=== PATIENT | female | born 1950 | race Caucasian/White ===

== ENCOUNTER → 2017-09-07 | Outpatient (CLI) | payer MEDICARE, OTHER ==
[~2017-09-07] MED LIST: ALBU17AE23 IH; AMLO10TA82 PO; ENAL20TA PO; EST.625T PO; HCT25T PO; PROP1TAB2 PO; TRAM50TA2 PO
[2017-09-07 15:26] LABS: BASOPHILS % (AUTO) 0 % (0-10); EOSINOPHILS # (AUTO) 0.3 10^3/uL (0.0-0.3); EOSINOPHILS % (AUTO) 3 % (0-10); HEMATOCRIT 42 % (35-52); HEMOGLOBIN 13.9 G/DL (11.5-16.0); LYMPHOCYTES % (AUTO) 30 % (12-44); MEAN CORPUSCULAR HEMOGLOBIN 31 PG (25-34); MEAN CORPUSCULAR HGB CONC 33 G/DL (32-36); MEAN CORPUSCULAR VOLUME 93 FL (80-99); MEAN PLATELET VOLUME 9.2 FL (7.4-10.4); MONOCYTES % (AUTO) 10 % (0-12); NEUTROPHILS # (AUTO) 5.7 X 10^3 (1.8-7.8); NEUTROPHILS % (AUTO) 57 % (42-75); PLATELET COUNT 276 10^3/uL (130-400); RED CELL DISTRIBUTION WIDTH 12.5 % (10.0-14.5)
[2017-09-07 15:43] LABS: ERYTHROCYTE SEDIMENTATION RATE 39 MM/HR (0-30)
[2017-09-07 15:45] LABS: ALANINE AMINOTRANSFERASE 40 U/L (0-55); ALBUMIN 4.3 GM/DL (3.2-4.5); ALKALINE PHOSPHATASE 73 U/L (40-136); BILIRUBIN,TOTAL 0.3 MG/DL (0.1-1.0); BUN/CREATININE RATIO 9; CALCIUM 10.1 MG/DL (8.5-10.1); CARBON DIOXIDE 27 MMOL/L (21-32); CHLORIDE 101 MMOL/L (98-107); GFR ESTIMATED > 60; GLUCOSE 121 MG/DL (70-105); POTASSIUM 4.2 MMOL/L (3.6-5.0); SODIUM 140 MMOL/L (135-145); TOTAL PROTEIN 8.3 GM/DL (6.4-8.2)
== END ==
LOC: LAB 15:09
PROVIDERS: ATTEND Nurse Practitioner Family
DX: R10.84 Generalized abdominal pain (principal); R35.0 Frequency of micturition; R05 Cough
CPT/HCPCS: 36415; 80053; 85025; 85652

== ENCOUNTER 2019-02-28 10:30 | Outpatient (CLI) | payer MEDICARE, OTHER ==
[~2019-02-28] VITALS: Ht 172 cm; Wt 106.0 kg
[~2019-02-28 10:30] MED LIST changes: +ALPR1TAB7 PO; +AMLO10TA7 PO; +BUDE10.2 IH; +DIPH25TA31 PO; +FURO-124 PO; +HYDR-3820 PO; +HYOS-19 SL; +NF-ADDXR30 PO; +NF-ADXR10C PO; +RT-ALBUINH INH; +TIOT4MIS5 IH
== END 2019-02-28 11:03 | disposition home or self-care (01) ==
LOC: PREOP 10:30
PROVIDERS: ATTEND Surgery
DX: Z01.818 Encounter for other preprocedural examination (principal)

== ENCOUNTER 2019-03-05 10:12 | Day surgery (SDC) | payer MEDICARE, OTHER ==
[~2019-03-05] VITALS: Ht 172.7 cm; Wt 106.0 kg
[2019-03-05] MEDS ORDERED: LACTATED RINGERS 1,000 ML IV ONE (10:39)
[2019-03-05] MEDS ORDERED: LACTATED RINGERS 1,000 ML IV STA (10:40)
[2019-03-05 10:45] VITALS: BP 138/81
--- NOTE | 2019-03-05 10:57 | Progress Note-Pre Operative ---
Pre-Operative Progress Note H&P Reviewed The H&P was reviewed, patient examined and no changes noted. Time Seen by Provider: 10:55 Date H&P Reviewed: Mar 05, 2019 Time H&P Reviewed: 10:53 Pre-Operative Diagnosis: screening colon DELVIN HUNT DO Mar 05, 2019 10:57
[2019-03-05] MEDS ORDERED: PROPOFOL INJECTION 50 ML IV ONE (12:40)
[2019-03-05 13:05] VITALS: BP 121/60
--- NOTE | 2019-03-05 13:09 | Progress Note-Post Operative ---
Post-Operative Progess Note Surgeon (s)/Automatic Quilling Machine Operator (s) Surgeon DELVIN HUNT DO Automatic Quilling Machine Operator: none Pre-Operative Diagnosis screening colon Post-Operative Diagnosis diverticula internal hemorrhoids Procedure & Operative Findings Date of Procedure 03/05/19 Procedure Performed/Findings colonoscopy Anesthesia Type IV sedation by GPS FIELD DATA COLLECTOR Estimated Blood Loss Estimated blood loss (mL): none Specimens/Packing Specimens Removed none DELVIN HUNT DO Mar 05, 2019 13:09
[2019-03-05 13:10] VITALS: BP 135/61
--- NOTE | 2019-03-05 13:12 | Endoscopy Discharge Instruct ---
Endo Procedure/Findings Findings 1.: Diverticulosis 2.: Internal Hemorrhoids Discharge Instructions - Activity: You might feel a little sleepy until tomorrow. This is due to the medicine you received to relax you. Until tomorrow, you should: NOT drive a car, operate machinery or power tools. NOT drink any alcoholic beverages. NOT make any important decisions or sign importortant papers. Do not return to work until tomorrow, unless otherwise instructed. Resume previous activities tomorrow. Diet: Start by taking liquids. If you tolerate liquids, advance to solid food. make an appointment for one week 1.: Colonscopy in 10 years Notify Physician - If you experience excessive bleeding, unusual abdominal pain, fever, or chest pain, contact your doctor immediately. DELVIN HUNT DO Mar 05, 2019 13:11
[2019-03-05 13:15] VITALS: BP 138/61
[2019-03-05 13:30] VITALS: BP 132/68
[2019-03-05 13:36] VITALS: BP 132/68
--- NOTE | 2019-03-06 22:50 | OPERATIVE REPORT ---
DATE OF SERVICE: 03/05/2019 PREOPERATIVE DIAGNOSIS: Screening colonoscopy. POSTOPERATIVE DIAGNOSES: 1. Diverticula. 2. Internal hemorrhoids. PROCEDURE: Colonoscopy. SURGEON: Fausto Bansal DO. OUTPLACEMENT CONSULTANT: None. ANESTHESIA: IV sedation by GIS ANALYST DEVELOPER. SPECIMENS: None. BLOOD LOSS: None. FLUIDS: Per anesthesia. POSTOPERATIVE CONDITION: Stable. INDICATION FOR PROCEDURE: The patient is a 68-year-old female who has never had a colonoscopy and needs one for screening. FINDINGS: The patient had some small diverticula and some internal hemorrhoids. No other obvious pathology seen. PROCEDURE NOTE: After informed consent was obtained, the patient was brought to the endoscopy suite and placed in the bed in the left lateral decubitus position. She was administered IV sedation by the GIS ANALYST DEVELOPER who then monitored her vitals the entire time, heart rate, blood pressure and pulse ox. Inserted the scope, pushed all the way to [address] in, noted some diverticula, took a picture of this and then once into the cecum, took a picture of appendiceal orifice, noted the ileocecal valve and then slowly withdrew the scope insufflating the circumferential wall looking at the cecum, up the ascending colon to the hepatic flexure, then down the transverse colon, the splenic flexure, into the descending colon down into the sigmoid and finally into the rectum, retroflexed the rectal vault, saw some small internal hemorrhoids maybe grade I and also looked like a little skin tag, picture taken. Scope was then removed. The patient tolerated the procedure and she was recovered in endoscopy suite. Job ID: [id number] DocumentID: [id number] Dictated Date: 03/06/2019 17:06:35 Environmental Safety Specialist Date: 03/06/2019 22:49:12 Dictated By: FAUSTO BANSAL DO
== END 2019-03-05 13:37 | disposition home or self-care (01) ==
LOC: ENDO 10:12
PROVIDERS: ATTEND Surgery
DX: Z12.11 Encounter for screening for malignant neoplasm of colon (principal); K57.30 Diverticulosis of large intestine without perforation or abscess without bleeding; K64.8 Other hemorrhoids; I10 Essential (primary) hypertension; J45.909 Unspecified asthma, uncomplicated; E66.9 Obesity, unspecified; F90.0 Attention-deficit hyperactivity disorder, predominantly inattentive type; Z68.35 Body mass index [BMI] 35.0-35.9, adult; Z90.710 Acquired absence of both cervix and uterus; Z90.49 Acquired absence of other specified parts of digestive tract; Z90.89 Acquired absence of other organs; Z79.899 Other long term (current) drug therapy; Z82.49 Family history of ischemic heart disease and other diseases of the circulatory system; Z83.3 Family history of diabetes mellitus; Z82.61 Family history of arthritis

== ENCOUNTER → 2019-03-16 | Outpatient (CLI) | payer MEDICARE, OTHER ==
[~2019-03-16] MED LIST changes: +BARIUM SUSPENSION 2.1% (VANILLA SILQ) 450 ML PO ONE; +CATHETER FLUSH 10 ML SYR IV PRN; +HOLD METFORMIN - RECEIVED CONTRAST 20 ML VIAL IV SCH; +IOHEXOL 350 MG/ML 100 ML (OMNIPAQUE 350) VIAL IV ONE; +NS 100 ML (IVPB) BAG IV ONE
[2019-03-16 14:09] LABS: BUN/CREATININE RATIO 9; GFR ESTIMATED > 60
--- NOTE | 2019-03-16 15:31 | Diagnostic Imaging Report ---
PROCEDURE: CT abdomen and pelvis with contrast. TECHNIQUE: Multiple contiguous axial images were obtained through the abdomen and pelvis after administration of intravenous contrast. Auto Exposure Controls were utilized during the CT exam to meet ALARA standards for radiation dose reduction. INDICATION: Abdominal pain Lung bases are clear. Liver appears normal. Gallbladder surgically absent. Portal vein is patent. Common duct is nondilated. Pancreas is normal. Spleen is not enlarged. Adrenals normal. Kidneys appear normal. There is minimal calcific atherosclerosis of the aorta but no aneurysm. Small bowel is not dilated. The appendix is not seen. There is minimal diverticulosis of the sigmoid colon. There is no evidence of diverticulitis. There is no intraperitoneal free air or free fluid. Uterus is surgically absent. IMPRESSION: No acute abnormality seen in the abdomen or pelvis. There is no evidence for diverticulitis. Dictated by: Dictated on workstation # [id number]
== END ==
LOC: RAD 13:43
PROVIDERS: ATTEND Surgery
DX: R10.9 Unspecified abdominal pain (principal)
CPT/HCPCS: 36415; 74177; 82565; 84520

== ENCOUNTER 2019-07-23 12:49 | Observation (INO) | payer MEDICARE, OTHER ==
[~2019-07-23] VITALS: Ht 172.7 cm; Wt 107.3 kg
[~2019-07-23 12:49] MED LIST changes: -BARIUM SUSPENSION 2.1% (VANILLA SILQ) 450 ML PO ONE; -CATHETER FLUSH 10 ML SYR IV PRN; -HOLD METFORMIN - RECEIVED CONTRAST 20 ML VIAL IV SCH; -IOHEXOL 350 MG/ML 100 ML (OMNIPAQUE 350) VIAL IV ONE; -NS 100 ML (IVPB) BAG IV ONE
[2019-07-23] MEDS ORDERED: methylPREDNISolone 125 MG (Solu-MEDROL) VIAL IV STA (12:56)
[2019-07-23] MEDS ORDERED: DEXAMETHASONE 4 MG/ML SDV (DECADRON) IH ONE (13:00)
[2019-07-23] MEDS ORDERED: RT-ALBUTEROL/IPRATROPIUM 3 ML (DUONEB) VIAL INH ONE (13:00)
--- NOTE | 2019-07-23 13:05 | ED General ---
General Stated Complaint: SOA Source of Information: Patient (SOMEWHAT DIFFICULT HISTORIAN) History of Present Illness Date Seen by Provider: Jul 23, 2019 Time Seen by Provider: 12:51 Initial Comments PT ARRIVES VIA POV, NEEDING WHEELCHAIR ON ARRIVAL PT WITH MULTIPLE COMPLAINTS STATES SHE HAS BEEN HAVING PROBLEMS FOR THE LAST 3 WEEKS MAIN COMPLAINT IS SHORTNESS OF BREATH--ONGOING FOR 3 WEEKS STATES "MY KIDNEYS DON'T WORK" STATES SHE "HAD THE FLU" 3 WEEKS AGO--DID NOT SEEK CARE--STATES IT WAS THE WEEK OF Jun-- HAD IT TOO. PT CAN ONLY STATE THAT HER SYMPTOMS WERE SUBJECTIVE FEVER, AND SHE SLEPT FOR 2-3 DAYS. STATES SHE HAD SUBJECTIVE FEVER 3 WEEKS AGO, BUT NOT SINCE. NO SIGNIFICANT COUGH STATES SHE HAS BEEN "LIGHTHEADED AND DIZZY" HAS CHRONIC SWELLING TO LEGS/ FEET, AND IS NO DIFFERENT TODAY NO CHEST PAIN PT STATES SHE HAS ASTHMA AND HAS 3 DIFFERENT INHALERS, HAS ONLY USED HER VENTOLIN INHALER TODAY--A COUPLE OF HOURS AGO HAS NOT USED HER OTHER INHALERS HAS NOT TAKEN ANYTHING ELSE FOR SYMPTOMS SYMPTOMS NO DIFFERENT TODAY HAS NOT SOUGHT CARE UNTIL TODAY STATES SHE USED TO SEE DR. TOLEDO, UNTIL HE RETIRED, AND HAS A NEW PT APPOINTMENT WITH [facility] IN THE MORNING PCP: NEW PT APPOINTMENT AT [facility] IN THE MORNING, SINCE DR. TOLEDO RETIRED LAST APRIL. Allergies and Home Medications Allergies Coded Allergies: Penicillins (Verified Allergy, Unknown, 07/23/19) Home Medications Albuterol Sulfate 1 Puff Puff, 2 PUFF INH Q4H PRN for SHORTNESS OF BREATH, (Reported) 1 PUFF = 90 MCG Alprazolam 1 Mg Tablet, 1 MG PO TID, (Reported) Amlodipine Besylate 10 Mg Tablet, 10 MG PO DAILY, (Reported) Budesonide/Formoterol Fumarate 10.2 Gm Hfa.aer.ad, 2 PUFF IH BID, (Reported) Dextroamphetamine/Amphetamine 30 Mg Cap.er.24h, 30 MG PO DAILY, (Reported) Dextroamphetamine/Amphetamine 10 Mg Cap.er.24h, 10 MG PO DAILY, (Reported) Diphenhydramine HCl 25 Mg Tablet, 25 MG PO PRN, (Reported) Enalapril Maleate 20 Mg Tablet, 20 MG PO DAILY, (Reported) Furosemide 40 Mg Tablet, 40 MG PO DAILY, (Reported) Hydrocodone/Acetaminophen 1 Each Tablet, 1 TAB PO Q6H PRN for PAIN-MODERATE, (Reported) Hyoscyamine Sulfate 0.125 Mg Tab.subl, 0.125 MG SL NEEDED, (Reported) Tiotropium [place] 4 Gm Mist.inhal, 2 PUFF IH DAILY, (Reported) Patient Home Medication List Home Medication List Reviewed: Yes Review of Systems Review of Systems Constitutional: see HPI EENTM: no symptoms reported Respiratory: see HPI Cardiovascular: No chest pain; edema; No palpitations, No syncope Gastrointestinal: no symptoms reported Genitourinary: see HPI, decreased output Musculoskeletal: see HPI (SWELLING) Skin: no symptoms reported Psychiatric/Neurological: No Symptoms Reported Past Fjxmfvq-Hqavus-Vnmzgn Hx Patient Social History 2nd Hand Smoke Exposure: No Recent Hopitalizations: No Immunizations Up To Date Date of Pneumonia Vaccine: Mar 07, 2017 Date of Influenza Vaccine: Mar 06, 2018 Seasonal Allergies Seasonal Allergies: Yes Past Medical History Surgeries: Yes (HYSTERECTOMY 1989,GALL BLADDER 1992; COLONOSCOPY) Appendectomy, Gallbladder, Hysterectomy, Oophorectomy Respiratory: Yes Asthma Cardiac: Yes Hypertension Neurological: No Reproductive Disorders: No Sexually Transmitted Disease: No HIV/AIDS: No Genitourinary: No Gastrointestinal: Yes Chronic Diarrhea Musculoskeletal: Yes Arthritis Endocrine: No HEENT: Yes (GLASSES, DENTURES) Loss of Vision: Denies Hearing Impairment: Denies Cancer: No Psychosocial: Yes Anxiety Integumentary: No Blood Disorders: No Adverse Reaction/Blood Tranf: No (HAS HAD BLOOD WITH NO REACTION) Physical Exam Vital Signs Vital Signs - First Documented 07/23/19 07/23/19 13:05 13:06 Temp 36.9 Pulse 120 Resp 20 B/P (MAP) 144/98 (113) Pulse Ox 95 O2 Delivery Nasal Cannula O2 Flow Rate 2.00 Capillary Refill : Height, Weight, BMI Height: '" Weight: lbs. oz. kg; 35.54 BMI Method: General Appearance: Obese, Other (MILDLY DYSPNEIC WITH MINIMAL EXERTION. ) HEENT: PERRL/EOMI Neck: Normal Inspection Respiratory: Wheezing (DIFFUSE EXPIRATORY WHEEZING BILATERALLY), Other (MILD DYSPNEA WITH MINIMAL EXERTION) Cardiovascular: No JVD, No Murmur, Tachycardia Gastrointestinal: Non Tender, Soft Back: No CVA Tenderness Extremity: Normal Capillary Refill, Normal Range of Motion, Non Tender, Pedal Edema (1+ BIALTERALLY) Neurologic/Psychiatric: Alert, Oriented x3, No Motor/Sensory Deficits, solder technician II- XII Norm as Tested Skin: Normal Color, Warm/Dry Focused Exam Lactate Level 07/23/19 13:00: Lactic Acid Level 0.90 Lactic Acid Level Laboratory Tests Test 07/23/19 13:00 Lactic Acid Level 0.90 MMOL/L (0.50-2.00) Progress/Results/Core Measures Suspected Sepsis SIRS Temperature: Pulse: Respiratory Rate: Laboratory Tests 07/23/19 13:00: White Blood Count 9.1 Blood Pressure / Mean: 07/23/19 13:00: Lactic Acid Level 0.90 Laboratory Tests 07/23/19 13:00: Creatinine 0.76, INR Comment 0.9, Platelet Count 301, Total Bilirubin 0.4 Results/Orders Lab Results Laboratory Tests Test 07/23/19 13:00 07/23/19 13:42 07/23/19 14:43 Range/Units White Blood Count 9.1 4.3-11.0 10^3/uL Red Blood Count 5.01 4.35-5.85 10^6/uL Hemoglobin 14.9 11.5-16.0 G/DL Hematocrit 46 35-52 % Mean Corpuscular Volume 92 80-99 FL Mean Corpuscular Hemoglobin 30 25-34 PG Mean Corpuscular Hemoglobin Concent 32 32-36 G/DL Red Cell Distribution Width 12.9 10.0-14.5 % Platelet Count 301 130-400 10^3/uL Mean Platelet Volume 9.4 7.4-10.4 FL Neutrophils (%) (Auto) 40 L 42-75 % Lymphocytes (%) (Auto) 39 12-44 % Monocytes (%) (Auto) 12 0-12 % Eosinophils (%) (Auto) 9 0-10 % Basophils (%) (Auto) 1 0-10 % Neutrophils # (Auto) 3.7 1.8-7.8 X 10^3 Lymphocytes # (Auto) 3.6 1.0-4.0 X 10^3 Monocytes # (Auto) 1.1 H 0.0-1.0 X 10^3 Eosinophils # (Auto) 0.8 H 0.0-0.3 10^3/uL Basophils # (Auto) 0.1 0.0-0.1 10^3/uL Prothrombin Time 12.9 12.2-14.7 SEC INR Comment 0.9 0.8-1.4 Activated Partial Thromboplast Time 31 24-35 SEC Sodium Level 139 135-145 MMOL/L Potassium Level 4.2 3.6-5.0 MMOL/L Chloride Level 104 98-107 MMOL/L Carbon Dioxide Level 26 21-32 MMOL/L Anion Gap 9 5-14 MMOL/L Blood Urea Nitrogen 8 7-18 MG/DL Creatinine 0.76 0.60-1.30 MG/DL Estimat Glomerular Filtration Rate > 60 BUN/Creatinine Ratio 11 Glucose Level 100 70-105 MG/DL Lactic Acid Level 0.90 0.50-2.00 MMOL/L Calcium Level 10.0 8.5-10.1 MG/DL Corrected Calcium 9.7 8.5-10.1 MG/DL Magnesium Level 2.1 1.6-2.4 MG/DL Total Bilirubin 0.4 0.1-1.0 MG/DL Aspartate Amino Transf (AST/SGOT) 55 H 5-34 U/L Alanine Aminotransferase (ALT/SGPT) 32 0-55 U/L Alkaline Phosphatase 89 40-136 U/L Myoglobin 76.1 10.0-92.0 NG/ML Troponin I < 0.028 <0.028 NG/ML B-Type Natriuretic Peptide 25.0 <100.0 PG/ML Total Protein 8.6 H 6.4-8.2 GM/DL Albumin 4.4 3.2-4.5 GM/DL Lipase 9 8-78 U/L TSH Burna Testing 3.37 0.35-4.94 UIU/ML Serum Alcohol < 10 <10 MG/DL Blood Gas Puncture Site L RAD Blood Gas Patient Temperature 36.9 Arterial Blood pH 7.35 L 7.37-7.43 Arterial Blood Partial Pressure CO2 51 H 35-45 MMHG Arterial Blood Partial Pressure O2 129 H 79-93 MMHG Arterial Blood HCO3 28 H 23-27 MMOL/L Arterial Blood Total CO2 29.3 21.0-31.0 MMOL/L Arterial Blood Oxygen Saturation 99 94-100 % Arterial Blood Base Excess 2.6 H -2.5-2.5 MMOL/L Len Test YES-POS Blood Gas Ventilator Setting NO Blood Gas Inspired Oxygen 3 Urine Color YELLOW Urine Clarity CLEAR Urine pH 7.0 5-9 Urine Specific [place] 1.010 L 1.016-1.022 Urine Protein NEGATIVE NEGATIVE Urine Glucose (UA) NEGATIVE NEGATIVE Urine Ketones NEGATIVE NEGATIVE Urine Nitrite NEGATIVE NEGATIVE Urine Bilirubin NEGATIVE NEGATIVE Urine Urobilinogen 0.2 < = 1.0 MG/DL Urine Leukocyte Esterase TRACE H NEGATIVE Urine RBC (Auto) NEGATIVE NEGATIVE Urine RBC NONE /HPF Urine WBC RARE /HPF Urine Squamous Epithelial Cells RARE /HPF Urine Crystals NONE /LPF Urine Bacteria NEGATIVE /HPF Urine Casts NONE /LPF Urine Mucus NEGATIVE /LPF Urine Culture Indicated CULTURE PENDING Urine Opiates Screen POSITIVE H NEGATIVE Urine Oxycodone Screen NEGATIVE NEGATIVE Urine Methadone Screen NEGATIVE NEGATIVE Urine Propoxyphene Screen NEGATIVE NEGATIVE Urine Barbiturates Screen NEGATIVE NEGATIVE Ur Tricyclic Antidepressants Screen NEGATIVE NEGATIVE Urine Phencyclidine Screen NEGATIVE NEGATIVE Urine Amphetamines Screen NEGATIVE NEGATIVE Urine Methamphetamines Screen NEGATIVE NEGATIVE Urine Benzodiazepines Screen POSITIVE H NEGATIVE Urine Cocaine Screen NEGATIVE NEGATIVE Urine Cannabinoids Screen NEGATIVE NEGATIVE Micro Results Microbiology 07/23/19 Influenza Types A,B Antigen (JOSEPH) - Final, Complete My Orders Orders - MARI KUMAR DO Ed Iv/Invasive Line Start (07/23/19 12:56) Ekg Tracing (07/23/19 12:56) O2 (07/23/19 12:56) Monitor-Rhythm Ecg Trace Only (07/23/19 12:56) Alcohol (07/23/19 12:56) Arterial Blood Gas (07/23/19 12:56) BNP (07/23/19 12:56) Cbc With Automated Diff (07/23/19 12:56) Comprehensive Metabolic Panel (07/23/19 12:56) Drug Screen Stat (Urine) (07/23/19 12:56) Lactic Acid Analyzer (07/23/19 12:56) Lipase (07/23/19 12:56) Magnesium (07/23/19 12:56) Protime With Inr (07/23/19 12:56) Partial Thromboplastin Time (07/23/19 12:56) Thyroid Analyzer (07/23/19 12:56) Ua Culture If Indicated (07/23/19 12:56) Blood Culture (07/23/19 12:56) Influenza A And B Antigens (07/23/19 12:56) Myoglobin Serum (07/23/19 12:56) Troponin I (07/23/19 12:56) Chest 1 View, Ap/Pa Only (07/23/19 12:56) Albuterol/Ipra Inhalation Soln (Duoneb I (07/23/19 13:00) Dexamethasone Injection (Decadron Inject (07/23/19 13:00) Rt Request For Service (07/23/19 12:56) Methylprednisolone Sod Succ (Solu-Medrol (07/23/19 12:56) Sputum Culture (07/23/19 12:56) Urine Culture (07/23/19 12:56) Ed Iv/Invasive Line Start (07/23/19 12:56) Vital Signs Adult Sepsis Patie Q15M (07/23/19 12:56) Remove Rings In Anticipation O (07/23/19 12:56) Svn Small Volume Nebulizer (07/23/19 12:56) Oseltamivir 75 Mg Capsule (Tamiflu 75 (07/23/19 13:45) Ed Iv/Invasive Line Start (07/23/19 13:34) Ns Iv 1000 Ml (Sodium Chloride 0.9%) (07/23/19 13:34) Enoxaparin Injection (Lovenox Injection) (07/23/19 14:30) Medications Given in ED Current Medications Medications Dose Ordered Sig/Waylon Route Start Time Stop Time Status Last Admin Dose Admin Albuterol/ Ipratropium 3 ml ONCE ONCE INH 07/23/19 13:00 07/23/19 13:01 DC 07/23/19 13:49 3 ML Dexamethasone Sodium Phosphate 20 mg ONCE ONCE IH 07/23/19 13:00 07/23/19 13:01 DC 07/23/19 13:50 20 MG Oseltamivir Phosphate 75 mg ONCE ONCE PO 07/23/19 13:45 07/23/19 13:46 DC 07/23/19 14:39 75 MG Vital Signs/I&O 07/23/19 07/23/19 07/23/19 07/23/19 13:05 13:06 13:50 15:50 Temp 36.9 Pulse 120 90 Resp 20 20 B/P (MAP) 144/98 (113) 117/88 Pulse Ox 95 97 97 95 O2 Delivery Nasal Cannula Nasal Cannula Nasal Cannula Nasal Cannula O2 Flow Rate 2.00 2.00 2.00 2.00 07/23/19 07/23/19 16:00 16:00 Temp 36.8 36.8 Pulse 104 104 Resp 18 18 B/P (MAP) 163/92 163/92 (115) Pulse Ox 98 98 O2 Delivery Nasal Cannula Nasal Cannula O2 Flow Rate 2.00 2.00 2.00 Capillary Refill : Progress Note : Progress Note INITIAL O2 SAT 85%--UP TO 90'S ON O2 AT 2L/NC GIVEN NEB TREATMENT--WITH INCREASED AERATION, DECREASED WHEEZING AND NO LONGER DYSPNEIC NO DETERIORATION IN PT'S CONDITION DURING ER STAY. STILL REQUIRING O2 AT 2L/NC, AFTER NEB TREATMENTS. O2 SAT DROPPED BACK DOWN TO 85% ON ROOM AIR AFTER SHE HAD BEEN TO THE BATHROOM AND BACK. ECG Initial ECG Impression Date: Jul 23, 2019 Initial ECG Impression Time: 12:59 Initial ECG Rate: 122 Initial ECG Rhythm: S.Tach Diagnostic Imaging Comments CXR--NO ACUTE PROCESS, ELEVATED RIGHT HEMIDIAPHRAGM, PER RADIOLOGIST REPORT AT 1408 Reviewed: Reviewed by Me Departure Communication (Admissions) 1415--SPOKE WITH DR. HOFFMAN, HOSPITALIST, PT IS NOT ACTUALLY ESTABLISHED WITH [facility] YET. ACCEPTS PT FOR ADMIT. ORDERS NOTED. Impression Primary Impression: Influenza A Additional Impression: ACUTE RESPIRATORY FAILURE WITH HYPOXIA Disposition: ADMITTED INPATIENT Condition: Improved Admissions Decision to Admit Reason: Admit from ER (General) Decision to Admit/Date: Jul 23, 2019 Time/Decision to Admit Time: 14:15 Departure-Patient Inst. Referrals: OSCAR TOLEDO MD (PCP/Family) Primary Care Physician MARI KUMAR DO Jul 23, 2019 13:05
[2019-07-23 13:14] LABS: BASOPHILS # (AUTO) 0.1 10^3/uL (0.0-0.1); BASOPHILS % (AUTO) 1 % (0-10); EOSINOPHILS # (AUTO) 0.8 10^3/uL (0.0-0.3); EOSINOPHILS % (AUTO) 9 % (0-10); HEMATOCRIT 46 % (35-52); HEMOGLOBIN 14.9 G/DL (11.5-16.0); LYMPHOCYTES # (AUTO) 3.6 X 10^3 (1.0-4.0); LYMPHOCYTES % (AUTO) 39 % (12-44); MEAN CORPUSCULAR HEMOGLOBIN 30 PG (25-34); MEAN CORPUSCULAR HGB CONC 32 G/DL (32-36); MEAN CORPUSCULAR VOLUME 92 FL (80-99); MEAN PLATELET VOLUME 9.4 FL (7.4-10.4); MONOCYTES # (AUTO) 1.1 X 10^3 (0.0-1.0); MONOCYTES % (AUTO) 12 % (0-12); NEUTROPHILS # (AUTO) 3.7 X 10^3 (1.8-7.8); NEUTROPHILS % (AUTO) 40 % (42-75); PLATELET COUNT 301 10^3/uL (130-400); RED CELL DISTRIBUTION WIDTH 12.9 % (10.0-14.5); WHITE BLOOD COUNT 9.1 10^3/uL (4.3-11.0)
[2019-07-23 13:22] LABS: INR 0.9 (0.8-1.4); PROTHROMBIN TIME PATIENT 12.9 SEC (12.2-14.7)
[2019-07-23 13:30] LABS: ALANINE AMINOTRANSFERASE 32 U/L (0-55); ALBUMIN 4.4 GM/DL (3.2-4.5); ALKALINE PHOSPHATASE 89 U/L (40-136); BILIRUBIN,TOTAL 0.4 MG/DL (0.1-1.0); BUN/CREATININE RATIO 11; CARBON DIOXIDE 26 MMOL/L (21-32); CHLORIDE 104 MMOL/L (98-107); CREATININE SERUM 0.76 MG/DL (0.60-1.30); GFR ESTIMATED > 60; GLUCOSE 100 MG/DL (70-105); LIPASE 9 U/L (8-78); MAGNESIUM 2.1 MG/DL (1.6-2.4); POTASSIUM 4.2 MMOL/L (3.6-5.0); SODIUM 139 MMOL/L (135-145); TOTAL PROTEIN 8.6 GM/DL (6.4-8.2)
[2019-07-23] MEDS ORDERED: NS IV 1000 ML 1,000 ML IV SCH (13:34)
[2019-07-23] MEDS ORDERED: OSELTAMIVIR 75 MG (TAMIFLU) CAPSULE PO ONE (13:45)
[2019-07-23 13:53] LABS: TSH (THYROID ANALYZER) 3.37 UIU/ML (0.35-4.94)
[2019-07-23 13:53] LABS: ABG BASE EXCESS 2.6 MMOL/L (-2.5-2.5); ABG OXYGEN SATURATION 99 % (94-100); ABG PCO2 51 MMHG (35-45); ABG PH 7.35 (7.37-7.43); ABG PO2 129 MMHG (79-93); ABG TCO2 29.3 MMOL/L (21.0-31.0); ALLENS TEST YES-POS; INSPIRED O2 3; VENTILATOR NO
[2019-07-23 13:54] LABS: PATIENT TEMP 36.9
--- NOTE | 2019-07-23 13:58 | Diagnostic Imaging Report ---
PATIENT HISTORY: Influenza. TECHNIQUE: Single frontal view of the chest. COMPARISON: None. FINDINGS: There is elevation of the right hemidiaphragm, otherwise the lung volumes appear normal. No focal consolidation is seen. No large pleural effusion or pneumothorax is seen. The cardiomediastinal silhouette is normal in size and contour. No acute osseous abnormality is seen. IMPRESSION: No acute pulmonary abnormality seen. Dictated by: Dictated on workstation # [id number]
[2019-07-23] MEDS ORDERED: ENOXAPARIN 40 MG/0.4 ML (LOVENOX) SYR SC ONE (14:30)
[2019-07-23 14:51] LABS: BILIRUBIN,URINE NEGATIVE (NEGATIVE); CLARITY,URINE CLEAR; COLOR,URINE YELLOW; GLUCOSE, URINE (UA) NEGATIVE (NEGATIVE); KETONES,URINE NEGATIVE (NEGATIVE); LEUKOCYTE ESTERASE ,URINE TRACE (NEGATIVE); NITRITE,URINE NEGATIVE (NEGATIVE); PROTEIN,URINE NEGATIVE (NEGATIVE)
[2019-07-23 15:00] LABS: BACTERIA,URINE NEGATIVE /HPF; SQUAMOUS EPITHELIAL CELL,UR RARE /HPF; WBC,URINE RARE /HPF
[2019-07-23 15:20] LABS: AMPHETAMINE SCREEN, URINE NEGATIVE (NEGATIVE); BARBITURATE SCREEN URINE NEGATIVE (NEGATIVE); BENZODIAZEPINES SCREEN URINE POSITIVE (NEGATIVE); CANNABINOID SCREEN, URINE NEGATIVE (NEGATIVE); COCAINE SCREEN URINE NEGATIVE (NEGATIVE); METHADONE STAT NEGATIVE (NEGATIVE); METHAMPHETAMINE SCREEN URINE S NEGATIVE (NEGATIVE); OPIATE SCREEN URINE POSITIVE (NEGATIVE); OXYCODONE STAT NEGATIVE (NEGATIVE); PROPOXYPHENE STAT NEGATIVE (NEGATIVE); TRICYCLIC ANTIDEPRESSANTS SCRE NEGATIVE (NEGATIVE)
--- NOTE | 2019-07-23 15:30 | NUR ---
CHAI CADENA admitted to room 414-1, with an admitting diagnosis of flu A , on 07/23/19 from ED via , accompanied by staff.CHAI CADENA introduced to surroundings, call light, bed controls, phone, TV, temperature control, lights, meal times, smoking policy, visitor policy, side rail policy, bathrooms and showers. Patient Rights given to patient in the handbook. CHAI CADENA verbalizes understanding that [facility] is not responsible for the loss or damage to any personal effects or valuables that are kept in the patients posession during their hospitalization. CHAI CADENA verbalizes understanding of Interdisciplinary Patient Education. Patient and/or family were informed about the Rapid Response Team and its purpose.
[2019-07-23 16:00] VITALS: BP 163/92
[2019-07-23] MEDS ORDERED: ONDANSETRON 4 MG/2 ML (SDV) Z0FRAN IVP PRN (16:45)
[2019-07-23] MEDS ORDERED: ACETAMINOPHEN 500 MG TAB (TYLENOL) PO PRN (16:45)
[2019-07-23] MEDS ORDERED: IBUPROFEN 800 MG (MOTRIN) TAB PO PRN (16:45)
[2019-07-23 16:58] VITALS: BP 144/98
[2019-07-23] MEDS: D5 1/2 NS W/KCL 20 MEQ/L 1,000 ML IV SCH (17:31)
[2019-07-23] MEDS: RT-ALBUTEROL/IPRATROPIUM 3 ML (DUONEB) VIAL INH SCH ×2 (18:35→23:00)
[2019-07-23] MEDS ORDERED: NITROGLYCERIN 2% OINT 1 GM UNIT DOSE PACKET TOP PRN (18:45)
[2019-07-23 19:27] LABS: FIBRIN DEGRADATION PRODUCTS 3.41 UG/ML (0.00-0.49)
[2019-07-23 19:56] VITALS: BP 156/77
[2019-07-23] MEDS ORDERED: RT-ALBUTEROL/IPRATROPIUM 3 ML (DUONEB) VIAL INH PRN (20:00)
[2019-07-23] MEDS ORDERED: RT-ADVAIR HFA 115/21 MCG PER PUFF IH SCH (20:00)
[2019-07-23] MEDS ORDERED: methylPREDNISolone 125 MG (Solu-MEDROL) VIAL IVP SCH (20:40)
[2019-07-24] VITALS (8 sets, daily range): BP systolic 127–153; BP diastolic 58–80
[2019-07-24] MEDS: OSELTAMIVIR 75 MG (TAMIFLU) CAPSULE PO SCH ×3 (00:29→20:31)
[2019-07-24] MEDS: D5 1/2 NS W/KCL 20 MEQ/L 1,000 ML IV SCH ×4 (00:29→20:31)
[2019-07-24] MEDS: RT-ALBUTEROL/IPRATROPIUM 3 ML (DUONEB) VIAL INH SCH ×7 (01:49→20:55)
[2019-07-24 05:40] LABS: BASOPHILS % (AUTO) 0 % (0-10); EOSINOPHILS % (AUTO) 0 % (0-10); HEMATOCRIT 42 % (35-52); HEMOGLOBIN 13.8 G/DL (11.5-16.0); LYMPHOCYTES # (AUTO) 1.2 X 10^3 (1.0-4.0); LYMPHOCYTES % (AUTO) 14 % (12-44); MEAN CORPUSCULAR HEMOGLOBIN 30 PG (25-34); MEAN CORPUSCULAR HGB CONC 33 G/DL (32-36); MEAN CORPUSCULAR VOLUME 91 FL (80-99); MEAN PLATELET VOLUME 10.1 FL (7.4-10.4); MONOCYTES # (AUTO) 0.4 X 10^3 (0.0-1.0); MONOCYTES % (AUTO) 5 % (0-12); NEUTROPHILS # (AUTO) 6.6 X 10^3 (1.8-7.8); NEUTROPHILS % (AUTO) 81 % (42-75); PLATELET COUNT 297 10^3/uL (130-400); RED CELL DISTRIBUTION WIDTH 12.4 % (10.0-14.5); WHITE BLOOD COUNT 8.2 10^3/uL (4.3-11.0)
[2019-07-24 06:02] LABS: ALANINE AMINOTRANSFERASE 30 U/L (0-55); ALBUMIN 4.3 GM/DL (3.2-4.5); ALKALINE PHOSPHATASE 69 U/L (40-136); BILIRUBIN,TOTAL 0.4 MG/DL (0.1-1.0); BUN/CREATININE RATIO 9; CALCIUM 9.8 MG/DL (8.5-10.1); CARBON DIOXIDE 21 MMOL/L (21-32); CHLORIDE 106 MMOL/L (98-107); CREATININE SERUM 0.74 MG/DL (0.60-1.30); GFR ESTIMATED > 60; GLUCOSE 186 MG/DL (70-105); POTASSIUM 4.2 MMOL/L (3.6-5.0); SODIUM 138 MMOL/L (135-145); TOTAL PROTEIN 8.2 GM/DL (6.4-8.2)
[2019-07-24] MEDS: ENOXAPARIN 40 MG/0.4 ML (LOVENOX) SYR SC SCH (08:16)
[2019-07-24] MEDS: ADVAIR HFA 115/21 MCG INHALER 8 GM IH SCH ×3 (10:26→20:55)
--- NOTE | 2019-07-24 11:03 | History & Physical-Hospitalist ---
YUSRACOURTNEY,MED STUDENT 07/24/19 1103: History of Present Illness HPI/Chief Complaint Patient is a 69 y/o female with history of asthma who presents with influenza A and hypoxia. She presented to the ED last night with worsening shortness of breath. Her symptoms first began 2 weeks ago when she reports she tested positive for Influenza A and was treated with Tamiflu. Around that same time she was having nausea, vomiting, and diarrhea, which have since resolved. She now complains of cough and headache. She feels that her symptoms worsen with inactivity and when she does not drink enough water. Her symptoms improve with breathing treatments. Her flu swab was again positive for influenza A in the ED yesterday. Date Seen 07/24/19 Time Seen by a Provider: 10:55 Attending Physician Navin Garcia MD [facility] Referring Physician Date of Admission Jul 23, 2019 at 14:15 Home Medications & Allergies Home Medications Reviewed patient Home Medication Reconciliation performed by pharmacy medication reconciliations maintenance department technician and/or nursing. Patients Allergies have been reviewed. Allergies Allergies Coded Allergies Penicillins (Verified Allergy, Unknown, 07/23/19) Past Trxqisb-Dydxhg-Wtgakk Hx Patient Social History Alcohol Use: Rarely Uses Recreational Drug Use: No Smoking Status: Never a Smoker 2nd Hand Smoke Exposure: No Recent Foreign Travel: No Contact w/other who traveled: No Recent Hopitalizations: No Recent Infectious Disease Expo: No Immunizations Up To Date Date of Pneumonia Vaccine: Mar 07, 2017 Date of Influenza Vaccine: Mar 06, 2018 Seasonal Allergies Seasonal Allergies: Yes Past Medical History Surgeries: Appendectomy, Gallbladder, Hysterectomy, Oophorectomy, Orthopedic Respiratory: Asthma Cardiac: Hypertension : No Reproductive: No Sexually Transmitted Disease: No HIV/AIDS: No Gastrointestinal: Diverticulosis, Chronic Diarrhea Musculoskeletal: Arthritis Loss of Vision: Denies Hearing Impairment: Denies Psychosocial: Anxiety History of Blood Disorders: No Adverse Reaction to Blood Conley: No (HAS HAD BLOOD WITH NO REACTION) Family History Diabetes Review of Systems Constitutional: No chills, No fever, No weight loss EENTM: No hearing loss, No vision loss Respiratory: cough, short of breath Cardiovascular: No chest pain, No palpitations Gastrointestinal: abdominal pain, constipation, diarrhea Genitourinary: No dysuria, No frequency Musculoskeletal: joint pain; No joint swelling Skin: No lesions, No rash Psychiatric/Neurological: Headache, Paresthesia (bilateral feet) Physical Exam Physical Exam Vital Signs Vital Signs - First Documented 07/23/19 07/23/19 07/23/19 13:05 13:06 16:58 Temp 36.9 Pulse 120 Resp 20 B/P (MAP) 144/98 (113) Pulse Ox 95 O2 Delivery Nasal Cannula O2 Flow Rate 2.00 FiO2 28 Capillary Refill : Less Than 3 Seconds Height, Weight, BMI Height: '" Weight: lbs. oz. kg; 35.97 BMI Method: General Appearance: No Apparent Distress, WD/WN HEENT: Pharynx Normal, Moist Mucous Membranes Neck: Full Range of Motion, Supple Respiratory: Chest Non Tender, No Accessory Muscle Use, No Respiratory Distress, Wheezing (mild expiratory wheezing on the left) Cardiovascular: No Murmur, Tachycardia (regular rhythm) Gastrointestinal: Soft, Tenderness (mild diffuse) Back: No CVA Tenderness Extremity: No Calf Tenderness, Swelling (mild pitting edema bilaterally) Neurologic/Psychiatric: Alert, Oriented x3 Skin: Normal Color, Warm/Dry Lymphatic: No Adenopathy Results Results/Procedures Labs Laboratory Tests 07/23/19 13:00 07/24/19 05:03 Patient resulted labs reviewed. Assessment/Plan Admission Diagnosis Influenza A - Tamiflu 75 mg BID - Droplet precautions - IV fluids NS 120 ml/hr - NSAIDs and Tylenol prn for symptomatic relief Asthma exacerbation - Received solumedrol 125 mg in ED - MAT protocol - O2 as needed Elevated d-dimer - In the setting of tachycardia and hypoxia, will order CT chest to r/o PE DVT prophylaxis - Lovenox 40 mg daily - SCDs Admission Status: Inpatient Order (span 2 midnights) Clinical Quality Measures DVT/VTE Risk/Contraindication: Risk Factor Score Per Nursin RFS Level Per Nursing on Admit: 3=High NAVIN GARCIA MD 07/24/19 1510: History of Present Illness Source: patient Past Foelzdz-Zutzkn-Ijvpvc Hx Past Med/Social Hx: Reviewed Nursing Past Med/Soc Hx Assessment/Plan Admission Diagnosis Pt admitted with hypoxia and influenza A. Remains mildly hypoxic today. Noted to be tachycardiac as well. Will continue to monitor on telemetry. D-dimer added due to hypoxia and tachycardia which was elevated so CTA chest is ordered to rule out PE. Continue on Tamiflu. MAT protocol. Advair ordered. Did not receive it last night or this AM but I discussed with pharmacy and RT and med now available. Diagnosis/Problems Diagnosis/Problems (1) Influenza A Status: Acute (2) Tachycardia Status: Acute (3) Asthma Qualifiers: Asthma severity: mild Asthma persistence: persistent Asthma complication type: uncomplicated Qualified Codes: J45.30 - Mild persistent asthma, uncomplicated (4) Hypoxia Status: Acute Supervisory-Addendum Brief Verification & Attestation Participated in pt care: history, MDM, physical Personally performed: exam, history, MDM, supervision of care Care discussed with: Medical Student Procedures: n/a Results interpretation: Verified all documentation Verification and Attestation of Medical Student E/M Service A medical student performed and documented this service in my presence. I reviewed and verified all information documented by the medical student and made modifications to such information, when appropriate. I personally performed the physical exam and medical decision making. Navin Garcia, Jul 24, 2019,15:10 COURTNEY MENG,MED STUDENT Jul 24, 2019 11:03 NAVIN GARCIA MD Jul 24, 2019 15:10
[2019-07-24] MEDS ORDERED: IOHEXOL 350 MG/ML 100 ML (OMNIPAQUE 350) VIAL IV ONE (13:45)
[2019-07-24] MEDS ORDERED: NS 100 ML (IVPB) BAG IV ONE (13:45)
[2019-07-24] MEDS ORDERED: CATHETER FLUSH 10 ML SYR IV PRN (13:45)
[2019-07-24] MEDS ORDERED: HOLD METFORMIN - RECEIVED CONTRAST 20 ML VIAL IV SCH (13:45)
--- NOTE | 2019-07-24 15:15 | Diagnostic Imaging Report ---
PROCEDURE: CT angiography of the chest with contrast. TECHNIQUE: Multiple contiguous axial images were obtained through the chest after uneventful bolus administration of intravenous contrast. 3D reconstructed CTA MIP acquisitions were also performed. Auto Exposure Controls were utilized during the CT exam to meet ALARA standards for radiation dose reduction. INDICATION: Shortness of air and cough. COMPARISON: No prior studies are available for comparison. FINDINGS: Evaluation of the pulmonary arterial system is without evidence of thromboembolism. No filling defects are seen within central, lobar or segmental branches. The thoracic aorta is normal caliber. There is no dissection. No pericardial or pleural fluid is identified. Right hemidiaphragm is elevated. No axillary lymphadenopathy is detected. No definite mediastinal or hilar lymphadenopathy is detected. Parenchymal evaluation does show some linear scarring or atelectasis in the right upper lobe. No infiltrates, nodules or masses are seen. There is minimal scarring in the left lower lobe. Upper abdomen is unremarkable. IMPRESSION: No evidence of pulmonary embolism or thoracic aortic dissection. Dictated by: Dictated on workstation # [id number]
--- NOTE | 2019-07-24 15:36 | NUR ---
this RN has been called multiple times throughout the day by air conditioning service technician stating that Heart rate occasionally is in the 140s-150s. at the time of assessment patient has either been talking or ambulating in the room. patient also stated that increased heart rate was normal for her in the past. Doctor Jose aware of the increased heart rate no additional orders at this time
--- NOTE | 2019-07-24 17:55 | NUR ---
telephone orders for one time 25mg PO metoprolol tartrate X1
[2019-07-24] MEDS ORDERED: meTOprolol TARTRATE 25 MG (LOPRESSOR) TABLET PO NR (17:59)
--- NOTE | 2019-07-24 18:59 | NUR ---
rechecked heart rate post beta merle. heart rate is at 109
--- NOTE | 2019-07-24 22:40 | NUR ---
PT COMPLAINS OF ABD CRAMPING AND LOOSE STOOLS. NEW ORDER RECEIVED FROM DR CHRISTIANSEN. SEE ORDER HISTORY
[2019-07-24] MEDS: LOPERAMIDE 2 MG (IMODIUM) TABLET PO PRN (23:37)
[2019-07-25] MEDS: RT-ALBUTEROL/IPRATROPIUM 3 ML (DUONEB) VIAL INH SCH ×4 (01:45→15:30)
[2019-07-25] MEDS: D5 1/2 NS W/KCL 20 MEQ/L 1,000 ML IV SCH ×2 (03:16→09:46)
[2019-07-25 03:18] VITALS: BP 137/66
[2019-07-25] MEDS: ADVAIR HFA 115/21 MCG INHALER 8 GM IH SCH (07:05)
[2019-07-25] MEDS: ENOXAPARIN 40 MG/0.4 ML (LOVENOX) SYR SC SCH (07:51)
[2019-07-25] MEDS: OSELTAMIVIR 75 MG (TAMIFLU) CAPSULE PO SCH (07:52)
[2019-07-25 08:00] VITALS: BP 137/72
[2019-07-25] MEDS ORDERED: PATIENT MAY USE OWN MED,SINGLE MED PO SCH (10:00)
[2019-07-25] MEDS ORDERED: HYOSCYAMINE 0.125 MG (LEVSIN) TAB SL PRN (10:15)
[2019-07-25 12:00] VITALS: BP 135/82
[2019-07-25] MEDS: LOPERAMIDE 2 MG (IMODIUM) TABLET PO PRN (12:05)
--- NOTE | 2019-07-25 13:10 | Progress Note - Hospitalist ---
Subjective HPI/CC On Admission Date Seen by Provider: Jul 25, 2019 Time Seen by Provider: 09:15 Patient is a 69 y/o female with history of asthma who presents with influenza A and hypoxia. She presented to the ED last night with worsening shortness of breath. Her symptoms first began 2 weeks ago when she reports she tested positive for Influenza A and was treated with Tamiflu. Around that same time she was having nausea, vomiting, and diarrhea, which have since resolved. She now complains of cough and headache. She feels that her symptoms worsen with inac tivity and when she does not drink enough water. Her symptoms improve with breathing treatments. Her flu swab was again positive for influenza A in the ED yesterday. Subjective/Events-last exam Patient is feeling better today. Her breathing has improved and she feels that her coughing is better. She has noticed an increase in bowel movements with 8 yesterday and 3 this morning. She reports that they are still formed stool and not watery or bloody. She has noticed associated abdominal cramping. She noticed an increase in daily bowel movements several months ago and had a colonoscopy in February 2019 for further investigation. No other new complaints or concerns at this time. Focused Exam Lactate Level 07/23/19 13:00: Lactic Acid Level 0.90 Objective Exam Vital Signs Vital Signs Date Time Temp Pulse Resp B/P (MAP) Pulse Ox O2 Delivery O2 Flow Rate FiO2 07/25/19 12:15 97 07/25/19 08:00 Nasal Cannula 2.00 07/25/19 08:00 36.6 18 137/72 (93) 94 07/23/19 16:58 28 Capillary Refill : Less Than 3 Seconds General Appearance: No Apparent Distress, WD/WN HEENT: Pharynx Normal, Moist Mucous Membranes Neck: Non Tender, Supple Respiratory: Chest Non Tender, Lungs Clear, Normal Breath Sounds, No Accessory Muscle Use, No Respiratory Distress Cardiovascular: Regular Rate, Rhythm, No Murmur Gastrointestinal: Soft, Tenderness (mild LLQ tenderness) Extremity: No Calf Tenderness, No Pedal Edema Neurologic/Psychiatric: Alert, Oriented x3 Skin: Normal Color, Warm/Dry Results/Procedures Lab Patient resulted labs reviewed. Assessment/Plan Assessment and Plan Assess & Plan/Chief Complaint Influenza A - Continue Tamiflu - Droplet precautions - IV fluids - NSAIDs and Tylenol as needed Tachycardia and hypoxia - MAT protocol - O2 as needed - CT angiogram was negative for PE - Telemetry - Ambulatory O2 evaluation prior to discharge Change in bowel habits - She had a colonoscopy in February 2019 that showed diverticula and internal hemorrhoids - Consider dietitian consult or possible GI referral - Recommend outpatient follow up Clinical Quality Measures DVT/VTE Risk/Contraindication: Risk Factor Score Per Nursin RFS Level Per Nursing on Admit: 3=High COURTNEY MENG,MED STUDENT Jul 25, 2019 13:10
--- NOTE | 2019-07-25 14:44 | Discharge Summary ---
COURTNEY MENG,MED STUDENT 07/25/19 1444: Diagnosis/Chief Complaint Date of Admission Jul 23, 2019 at 14:15 Date of Discharge Discharge Date: Jul 25, 2019 Admission Diagnosis Pt admitted with hypoxia and influenza A. Remains mildly hypoxic today. Noted to be tachycardiac as well. Will continue to monitor on telemetry. D-dimer added due to hypoxia and tachycardia which was elevated so CTA chest is ordered to rule out PE. Continue on Tamiflu. MAT protocol. Advair ordered. Did not receive it last night or this AM but I discussed with pharmacy and RT and med now available. Primary Care René Geiger Discharge Diagnosis (1) Influenza A Status: Acute (2) Tachycardia Status: Acute (3) Asthma (4) Hypoxia Status: Acute Discharge Summary Discharge Physical Exam Allergies: Coded Allergies: Penicillins (Verified Allergy, Unknown, 07/23/19) Vitals & I&Os Vital Signs Date Time Temp Pulse Resp B/P (MAP) Pulse Ox O2 Delivery O2 Flow Rate FiO2 07/25/19 12:15 97 07/25/19 08:00 Nasal Cannula 2.00 07/25/19 08:00 36.6 18 137/72 (93) 94 07/23/19 16:58 28 General Appearance: No Apparent Distress, WD/WN HEENT: Pharynx Normal, Moist Mucous Membranes Respiratory: Chest Non Tender, Lungs Clear, Normal Breath Sounds, No Accessory Muscle Use, No Respiratory Distress Cardiovascular: Regular Rate, Rhythm, No Murmur Gastrointestinal: Non Tender, Soft Extremity: No Calf Tenderness, No Pedal Edema Skin: Normal Color, Warm/Dry Neurologic/Psychiatric: Alert, Oriented x3 Hospital Course Was the Problem List Reviewed?: Yes Patient presented to the ED on 07/23/19 with chief complaint of shortness of breath. She tested positive for influenza A and was admitted for further management. Tamiflu was started as well as tylenol and NSAIDs for symptomatic relief. Hospital course was significant for intermittent hypoxia and tachycardia, which improved with MAT protocol and O2 nasal cannula as needed. She did have an elevated d-dimer and a CTA chest was ordered which was negative for PE. Metoprolol was started for rate control. She is breathing better today and she is requesting to go home. An ambulatory O2 test will be completed prior to discharge. She will complete Tamiflu course outpatient and will follow up with a primary care provider at [facility] in 1 week. Labs (last 24 hrs) Microbiology 07/23/19 Urine Culture - Final, Complete NO GROWTH 07/23/19 Blood Culture - Preliminary, Resulted No growth 07/23/19 Influenza Types A,B Antigen (JOSEPH) - Final, Complete Patient resulted labs reviewed. Discharge Home Medications: Active Scripts Active Reported Diphenhydramine HCl 25 Mg Tablet 25 Mg PO PRN Amlodipine Besylate 10 Mg Tablet 10 Mg PO DAILY Enalapril Maleate 20 Mg Tablet 20 Mg PO DAILY Hyoscyamine Sulfate 0.125 Mg Tab.subl 0.125 Mg SL NEEDED Lasix (Furosemide) 40 Mg Tablet 40 Mg PO DAILY Alprazolam 1 Mg Tablet 1 Mg PO TID 7 Days Hydrocodon-Acetaminophn 10-325 (Hydrocodone/Acetaminophen) 1 Each Tablet 1 Tab PO Q6H PRN 7 Days Adderall Xr 10 mg Capsule (Dextroamphetamine/Amphetamine) 10 Mg Cap.er.24h 10 Mg PO DAILY 7 Days Adderall Xr 30 mg Capsule (Dextroamphetamine/Amphetamine) 30 Mg Cap.er.24h 30 Mg PO DAILY 7 Days Spiriva Respimat 1.25MCG/ACTUATION (Tiotropium [place]) 4 Gm Mist.inhal 2 Puff IH DAILY Symbicort 160-4.5 Mcg Inhaler (Budesonide/Formoterol Fumarate) 10.2 Gm Hfa.aer.ad 2 Puff IH BID Ventolin Hfa (Albuterol Sulfate) 1 Puff Puff 2 Puff INH Q4H PRN 1 PUFF = 90 MCG Instructions to patient/family Please see electronic discharge instructions given to patient. Clinical Quality Measures DVT/VTE Risk/Contraindication: Risk Factor Score Per Nursin RFS Level Per Nursing on Admit: 3=High NAVIN GARCIA MD 07/26/19 1827: Discharge Summary Discharge Physical Exam Allergies: Coded Allergies: Penicillins (Verified Allergy, Unknown, 07/23/19) Discussion & Recommendations Discharge Planning: >30 minutes discharge planning Supervisory-Addendum Brief Verification & Attestation Participated in pt care: history, MDM, physical Personally performed: exam, history, MDM, supervision of care Care discussed with: Medical Student Procedures: n/a Results interpretation: Verified all documentation Verification and Attestation of Medical Student E/M Service A medical student performed and documented this service in my presence. I reviewed and verified all information documented by the medical student and made modifications to such information, when appropriate. I personally performed the physical exam and medical decision making. Navin Garcia, Jul 26, 2019,18:27 Problem Qualifiers (1) Asthma: Asthma severity: mild Asthma persistence: persistent Asthma complication type: uncomplicated Qualified Codes: J45.30 - Mild persistent asthma, uncomplicated COURTNEY MENG,MED STUDENT Jul 25, 2019 14:44 NAVIN GARCIA MD Jul 26, 2019 18:27
[2019-07-25] MEDS ORDERED: FLUT12AE4 IH (14:45)
[2019-07-25] MEDS ORDERED: OSLT75C PO (14:45)
--- NOTE | 2019-07-25 14:46 | Discharge Inst-Simple/Standard ---
Discharge Inst-Standard Discharge Medications New, Converted or Re-Newed RX: Transmitted to Pharmacy Patient Instructions/Follow Up Plan of Care/Instructions/FU: Please continue to take your medications as written. Please follow up with your PCP within the next week to follow up this hospital stay. Activity as Tolerated: Yes Discharge Diet: No Restrictions Return to The Hospital For: Chest pain, fever, shortness of breath, racing heart rate, if you feel you are getting worse. NAVIN HOFFMAN MD Jul 25, 2019 14:46
--- NOTE | 2019-07-25 15:32 | NUR ---
patient was walked on room air sat dropped to 90% Addendum: 07/25/19 at 1533 by DIEGO GUPTA RT Amended: Links added.
[2019-07-25 16:15] VITALS: BP 135/82
[2019-07-25 16:30] VITALS: BP 149/72
--- NOTE | 2019-07-26 12:53 | NUR ---
RECEIVED ORDER FOR PT TO GO THROUGH PULMONARY REHAB; LOOKED UP PTS FILE TO SEE IF CURRENT PFT IN RECORDS (FOR EVAL) AND TO GET CONTACT INFORMATION TO SCHEDULE EVALUATION.
== END 2019-07-25 16:15 | disposition home or self-care (01) ==
LOC: ER 12:49 → EDUNIT# 12:49 → 4TH 14:15
PROVIDERS: ADMIT Family Medicine; ATTEND Family Medicine
DX: J10.1 Influenza due to other identified influenza virus with other respiratory manifestations (principal); J96.01 Acute respiratory failure with hypoxia; J45.30 Mild persistent asthma, uncomplicated; K59.09 Other constipation; M19.90 Unspecified osteoarthritis, unspecified site; F41.9 Anxiety disorder, unspecified; R00.0 Tachycardia, unspecified; Z79.899 Other long term (current) drug therapy; Z79.891 Long term (current) use of opiate analgesic; Z88.0 Allergy status to penicillin; Z90.89 Acquired absence of other organs; Z90.710 Acquired absence of both cervix and uterus
CPT/HCPCS: 36415; 71045; 71275; 80053; 80306; 80320; 81000; 82805; 83605; 83690; 83735; 83874; 83880; 84443; 84484; 85025; 85379; 85610; 85730; 87040; 87088; 87804; 93005; 93041; 94640; 94760; 94761; 96361; 96372; 96374; G0378

== ENCOUNTER → 2019-08-29 | Outpatient (CLI) | payer MEDICARE, OTHER ==
[~2019-08-29] MED LIST changes: +ACHYD1T PO; +FLUT12AE4 IH; -HYDR-3820 PO; +OSLT75C PO
--- NOTE | 2019-08-29 13:51 | Diagnostic Imaging Report ---
PROCEDURE: CT abdomen and pelvis without contrast. TECHNIQUE: Multiple contiguous axial images were obtained through the abdomen and pelvis without the use of intravenous contrast. Auto Exposure Controls were utilized during the CT exam to meet ALARA standards for radiation dose reduction. INDICATION: Right flank pain. COMPARISON: Exam compared with abdominopelvic CT of 03/16/2019. FINDINGS: There is no hydroureteronephrosis. Punctate nonobstructing 2 mm stone within the left lower pole calyx is present. No radiodense ureteral or bladder stone. No perinephric or periureteric edema. Uterus is absent. No adnexal lesion. There is no ileus or bowel obstruction. Gallbladder is surgically absent. The liver, spleen, adrenals, and pancreas are unremarkable. The atherosclerotic aorta is nonaneurysmal. No ascites, abscess, hematoma, or acute fluid collection. There is no free air. There are degenerative changes to the spine with no acute-appearing bony pathology. The lung bases appeared nonacute. IMPRESSION: Nonobstructing intrarenal stone on the left. No inflammatory process, obstructive features, fluid collection, ascites, or acute abnormalities identified. Dictated by: Dictated on workstation # [id number]
== END ==
LOC: RAD 12:47
PROVIDERS: ATTEND Physician Assistant
DX: N20.0 Calculus of kidney (principal)
CPT/HCPCS: 74176

== ENCOUNTER → 2020-06-30 | Outpatient (CLI) | payer MEDICARE ==
[~2020-06-30] MED LIST changes: +AMLO-251 PO; -AMLO10TA7 PO; +ENAL20TA16 PO
== END ==
LOC: CARD 13:00
PROVIDERS: ATTEND Internal Medicine Cardiovascular Disease
DX: I34.0 Nonrheumatic mitral (valve) insufficiency (principal)
CPT/HCPCS: 93225; 93226; 93306

== ENCOUNTER → 2020-07-08 | Outpatient (CLI) | payer MEDICARE, OTHER ==
[~2020-07-08] VITALS: Ht 172 cm; Wt 100.0 kg
[~2020-07-08] MED LIST changes: +REGADENOSON 0.4 MG/5 ML SYR (LEXISCAN) IV ONE
[2020-07-08] MEDS: CATHETER FLUSH 10 ML SYR IV PRN ×2 (11:15→13:33)
[2020-07-08 13:01] VITALS: BP 157/90
--- NOTE | 2020-07-10 10:50 | STRESS TEST ---
DATE OF SERVICE: 07/08/2020 RESTING AND POST REGADENOSON TECHNETIUM-99M TETROFOSMIN SPECT CT IMAGING ORDERING PHYSICIAN: Dr. Contreras. PRIMARY PHYSICIAN: [facility]. CLINICAL DIAGNOSIS: Shortness of breath. Baseline images were carried out after injection of 10.33 mCi of technetium-99m Tetrofosmin. This was followed by 0.4 mg Regadenoson and 30.9 mCi of technetium-99m Tetrofosmin for stress imaging. The electrocardiogram showed sinus rhythm at baseline. It did not change significantly with the Regadenoson infusion. The patient tolerated the procedure well. Review of images at rest and following stress does not indicate any significant perfusion defects. Gated images show normal global left ventricular systolic function with a normal regional wall motion. Left ventricular ejection fraction is calculated to be 79%. Left ventricular end diastolic volume is 38 mL. TID is absent (1.04). CONCLUSIONS: 1. No evidence of any significant myocardial ischemia or infarction on this study. 2. Normal regional wall motion. 3. Normal to hyperdynamic left ventricular systolic function with a calculated ejection fraction of 79%. Job ID: [id number] DocumentID: [id number] Dictated Date: 07/10/2020 10:11:16 Security Developer Date: 07/10/2020 10:50:07 Dictated By: PAYTON CONTRERAS MD, MA, FACP, FACC,
== END ==
LOC: CARD 11:04
PROVIDERS: ATTEND Internal Medicine Cardiovascular Disease
DX: R06.02 Shortness of breath (principal)
CPT/HCPCS: 78452; 93017; A9502

== ENCOUNTER 2021-02-04 09:53 | Outpatient (CLI) | payer MEDICARE ==
[~2021-02-04 09:53] MED LIST changes: -REGADENOSON 0.4 MG/5 ML SYR (LEXISCAN) IV ONE
== END 2021-02-04 10:13 ==
LOC: SLEEP 09:53
PROVIDERS: ATTEND Nurse Practitioner
DX: G47.33 Obstructive sleep apnea (adult) (pediatric) (principal)
CPT/HCPCS: G0399